=== PATIENT | male | born 1950 | race Caucasian/White ===

== ENCOUNTER 2023-01-22 14:04 | Emergency (ER) | payer OTHER, MEDICARE ==
[~2023-01-22] VITALS: Ht 180.3 cm; Wt 99.0 kg
[2023-01-22] VITALS (11 sets, daily range): BP systolic 115–135; BP diastolic 58–79
[2023-01-22] MEDS ORDERED: LANTUS100 UNIT SC (14:46)
[2023-01-22] MEDS ORDERED: APIDRA100 UNIT/M SC (14:46)
[2023-01-22] MEDS ORDERED: TRULICITY4.5 MG/0.5 SC (14:47)
[2023-01-22] MEDS ORDERED: METFORMIN500 M2 PO (14:47)
[2023-01-22] MEDS ORDERED: ENALAPRIL2.5 MG PO (14:48)
[2023-01-22] MEDS ORDERED: ATORVASTATIN CA10 MG PO (14:48)
[2023-01-22] MEDS ORDERED: ASPIRINCHW 81MG PO (14:49)
[2023-01-22] MEDS ORDERED: LOPRESSOR25 M1 PO (14:49)
[2023-01-22 14:50] LABS: BASO% 0.3 % (0-3); EOS% 0.9 % (0-8); HEMATOCRIT 34.9 % (39.0-50.0); HEMOGLOBIN 11.2 g/dl (14.0-18.0); IMMATURE GRANULOCYTES 0.2 % (0.0-5.0); LYMPH% 10.3 % (15-41); MEAN CELL VOLUME 93.8 fL CALC (80.0-100.0); MEAN CORPUSCULAR HGB 30.1 pG CALC (26.0-32.0); MEAN CORPUSCULAR HGB CONC 32.1 g/dL CAL (32.0-36.0); MONO% 4.8 % (2-13); NEUT# 10.24 thou/uL (1.82-7.42); NEUT% 83.5 % (42-76); RED BLOOD COUNT 3.72 mill/uL (4.70-6.10); RED CELL DISTRI WIDTH 13.4 % (11.5-15.5)
[2023-01-22] MEDS ORDERED: CINNAMON500 M1 PO (14:50)
[2023-01-22] MEDS ORDERED: COQ10100 MG PO (14:50)
[2023-01-22 15:01] LABS: ALBUMIN 3.6 g/dL (3.2-5.0); ALKALINE PHOSPHATASE 95 u/l (38-126); ANION GAP 13 (6-22 (CALC)); BILIRUBIN, TOTAL 0.8 mg/dL (0.2-1.3); BUN 22 mg/dL (8-23); BUN/CREATININE RATIO 18 (12-20 (CALC)); CARBON DIOXIDE 20 mmol/l (22-30); CHLORIDE 109 mmol/l (95-108); CREATININE 1.3 mg/dL (0.7-1.3); GFR FOR AFR.AMER. > 60 ML/MIN (>=60 (CALC)); GFR OTHER RACES 54 ML/MIN (>=60 (CALC)); POTASSIUM 4.3 mmol/l (3.5-5.1); SGOT/AST 27 u/l (19-48); SODIUM 137 mmol/l (137-146); TOTAL PROTEIN 6.3 g/dL (6.3-8.2)
[2023-01-22 15:42] LABS: URINE BILIRUBIN - DIPSTICK NEGATIVE (NEGATIVE); URINE BLOOD DIPSTICK NEGATIVE (NEGATIVE); URINE COLOR YELLOW; URINE GLUCOSE - DIPSTICK NEGATIVE (NEGATIVE); URINE KETONE TRACE mg/dL (NEGATIVE); URINE LEUK ESTERASE NEGATIVE (NEGATIVE); URINE PH 5.5 (4.5-8.0); URINE PROTEIN - DIPSTICK NEGATIVE (NEG-TRACE); URINE SPECIFIC GRAVITY 1.025; URINE UROBILINOGEN - DIPSTICK 0.2 E.U./dL (0.2)
[2023-01-22 15:43] LABS: URINE NITRITE - DIPSTICK NEGATIVE (Negative)
== END 2023-01-22 16:45 | disposition home or self-care (01) | DRG 923 ==
LOC: ED 14:04
PROVIDERS: Nurse Practitioner
DX: T67.9XXA Effect of heat and light, unspecified, initial encounter (principal); E86.0 Dehydration; Y99.2 Volunteer activity; W92.XXXA Exposure to excessive heat of man-made origin, initial encounter